=== PATIENT | female | born 1945 | race Caucasian/White ===

== ENCOUNTER 2019-05-06 20:01 | Emergency (ER) | payer MEDICARE, BC ==
[~2019-05-06] VITALS: Ht 160 cm; Wt 65.9 kg
[2019-05-06 20:05] VITALS: TEMP 98.7
[2019-05-06] MEDS ORDERED: PREDNISONE10 MG PO (20:38)
[2019-05-06] MEDS ORDERED: SYNTHROID0.1 MG/TAB PO (20:39)
[2019-05-06] MEDS ORDERED: BREO IH (20:41)
[2019-05-06] MEDS ORDERED: CYANOCOBAL1000 MCG/1 IM (20:41)
[2019-05-06] MEDS ORDERED: INCRUSE EL62.5 MCG/A IH (20:42)
[2019-05-06 20:43] LABS: BASO % 0.3 % (0.0-2.0); EOS # 0.1 (0.0-0.7); EOS % 0.9 % (0-4.0); GRAN # 9.5 (1.4-6.5); GRAN % 83.4 % (42.2-75.2); HEMATOCRIT 45.8 % (37.0-47.0); HEMOGLOBIN 15.2 g/dl (12.5-16.0); LYMPH # 0.8 (1.2-3.4); LYMPH % 6.9 % (20.0-51.0); MEAN CELL VOLUME 85 fl (80.0-100.0); MEAN CORPUSCULAR HEMOGLOBIN 28 pg (27.0-31.0); MEAN CORPUSCULAR HGB CONC 33 g/dl (33.0-37.0); MEAN PLATELET VOLUME 10.9 fl (7.4-10.4); MONO # 0.8 (0.1-0.6); MONO % 6.9 % (1.7-9.3); PLATELET COUNT 174 K/mm3 (130-400); REDCELL DISTRIBUTION WIDTH-CV 15.1 % (11.5-14.5)
[2019-05-06] MEDS ORDERED: ISOPTIN SR240 MG PO (20:44)
[2019-05-06] MEDS ORDERED: PROMETHAZINE D473 ML PO (20:45)
[2019-05-06] MEDS ORDERED: MULTI VITAMINS1 TAB PO (20:46)
[2019-05-06] MEDS ORDERED: CALCIUM 600 PLU1 TAB PO (20:47)
[2019-05-06] MEDS ORDERED: D3-5050000 IU (20:49)
[2019-05-06] MEDS ORDERED: LIPITOR 40MG TA40 MG PO (20:50)
[2019-05-06] MEDS ORDERED: SINGULAIR 110 MG/TAB PO (20:51)
[2019-05-06] MEDS ORDERED: PROAIR HFA0.09 MG/AC IH (20:53)
[2019-05-06] MEDS ORDERED: DALIRESP500 MCG PO (20:54)
[2019-05-06 21:03] LABS: ALANINE AMINOTRANSFERASE 19 U/L (9-52); ALKALINE PHOSPHATASE 76 U/L (50-136); ANION GAP 9 mmol/L (7-16); AST,SGOT 20 U/L (15-37); BILIRUBIN,TOTAL 0.4 mg/dL (0.0-1.0); BLOOD UREA NITROGEN 23 mg/dL (7-17); CALCIUM 9.6 mg/dL (8.4-10.2); CARBON DIOXIDE 20 mmol/L (22-30); CHLORIDE 110 mmol/L (98-107); CREATININE, serum 1.16 (0.52-1.25); GLUCOSE 159 mg/dL (74-106); POTASSIUM 3.8 mmol/L (3.4-5.0); SODIUM 140 mmol/L (137-145); TOTAL PROTEIN 6.7 gm/dL (6.4-8.2)
[2019-05-06 21:08] LABS: C-REACTIVE PROTEIN < 0.5 mg/dL (0.0-0.9)
[2019-05-06 21:14] LABS: TROPONIN-I < 0.012 ng/mL (0.000-0.035)
[2019-05-06] MEDS ORDERED: PREDNISONE20 MG PO ×2 (21:45)
[2019-05-06] MEDS ORDERED: ZITHROMAX 250M250 MG PO (21:45)
[2019-05-06 22:30] VITALS: BP 155/80; PULSE 87
[2019-05-07] MEDS ORDERED: PROLIA60 MG/ML IJ (21:51)
[2019-05-09] MEDS ORDERED: ZITHROMAX500 M2 PO (11:45)
[2019-05-09] MEDS ORDERED: PREDNISONE20 MG PO (11:47)
== END 2019-05-06 22:30 | disposition home or self-care (01) ==
LOC: COL.ER 20:01
PROVIDERS: Emergency Medicine
DX: J44.1 Chronic obstructive pulmonary disease with (acute) exacerbation (principal); E78.5 Hyperlipidemia, unspecified; I10 Essential (primary) hypertension; I48.91 Unspecified atrial fibrillation; K50.90 Crohn's disease, unspecified, without complications; Z79.51 Long term (current) use of inhaled steroids
CPT/HCPCS: J7512